=== PATIENT | male | born 1940 | race Hispanic/Latino ===

== ENCOUNTER 2022-04-21 17:36 | Emergency (ER) | payer OTHER ==
[2022-04-21 18:51] LABS: Absolute Lymphocytes (CBC) 0.8 K/uL (0.7-4.9); Hematocrit 43.7 % (39.6-49.0); Lymphocytes % 12.9 % (15.3-44.8); MPV 8.3 fL (7.6-11.3); RBC Red Blood Cell Count 4.86 M/uL (4.33-5.43)
[2022-04-21 18:54] LABS: Protime INR 1.45
[2022-04-21 19:11] LABS: Albumin 3.6 g/dL (3.4-5.0); Bilirubin Direct 0.2 mg/dL (0-0.2); Bilirubin Total 0.9 mg/dL (0.2-1.0); Magnesium 2.1 mg/dL (1.8-2.4); Potassium 4.6 mmol/L (3.5-5.1); Protein, Total 6.8 g/dL (6.4-8.2); Troponin High Sensitivity 4.6 pg/mL (<58.9)
--- NOTE | 2022-04-21 19:22 | RAD REPORT ---
EXAM DESCRIPTION: USExtrem Venous W Compress Bil04/21/2022 6:59 pm CLINICAL HISTORY: Leg pain COMPARISON: none FINDINGS: The common femoral, superficial femoral, popliteal and posterior tibial veins bilaterally are compressible and demonstrate augmentation. Doppler demonstrates good flow. Grayscale, color and spectral analysis performed on all vessels IMPRESSION: No evidence of deep venous thrombosis involving either lower extremity.
[2022-04-21] MEDS ORDERED: NA CHLORIDE 0.9% 1,000 ML ONE (20:31)
[2022-04-21 20:56] LABS: Urine Blood Trace-lysed (Negative); Urine Glucose Negative (Negative); Urine Protein Negative (Negative); Urine Specific Gravity 1.015 (1.005-1.030); Urine pH 6.5 (5.0-7.0)
--- NOTE | 2022-04-21 21:33 | RAD REPORT ---
EXAM DESCRIPTION: CT - Chest For Pe Angio - 04/21/2022 9:16 pm CLINICAL HISTORY: sob COMPARISON: None. TECHNIQUE: Dynamically enhanced axial 3 mm thick images of the chest were obtained during administra tion of <100> mL Isovue 370 IV contrast. Coronal and oblique reconstruction images were generated and reviewed. Exam utilizes a protocol for optimal evaluation of pulmonary arterial tree. Maximum intensity projections 3D imaging was utilized All CT scans are performed using dose optimization technique as appropriate and may include automated exposure control or mA/KV adjustment according to patient size. FINDINGS: A pulmonary embolus is not seen. A thoracic aortic aneurysm is not noted. A pleural effusion is not seen. A pericardial effusion is not seen. A lung consolidation is not present. IMPRESSION: Negative for a pulmonary embolism.
--- NOTE | 2022-04-21 21:34 | RAD REPORT ---
EXAM DESCRIPTION: Mike Single View04/21/2022 7:30 pm CLINICAL HISTORY: Chest pain COMPARISON: none FINDINGS: The lungs appear clear of acute infiltrate. The heart is normal size IMPRESSION: No acute abnormalities displayed
--- NOTE | 2022-04-21 21:56 | ER ---
Nurse's Notes [facility] Name: Donald Galdamez Age: 81 yrs Sex: Male : 1940 Arrival Date: 04/21/2022 Time: 17:36 Bed 4 Private MD: Diagnosis: Weakness;Other fatigue;Other malaise and fatigue;Chest pain, unspecified Presentation: 04/21 18:01 Chief complaint: Patient states: he has been having pain in his legs that goes up ap3 toward his stomach and his chest. Patient also reports fatigue and weakness. He states this all began a few days ago. Patient states this has happened before but wasn't told what was going on. Coronavirus screen: At this time, the client does not indicate any symptoms associated with coronavirus-19. Ebola Screen: No symptoms or risks identified at this time. Initial Sepsis Screen: Does the patient meet any 2 criteria? No. Patient's initial sepsis screen is negative. Does the patient have a suspected source of infection? No. Patient's initial sepsis screen is negative. Risk Assessment: Do you want to hurt yourself or someone else? Patient reports no desire to harm self or others. Onset of symptoms was April 18, 2022. 18:01 Method Of Arrival: Ambulatory ap3 18:01 Acuity: BRENDA 3 ap3 Triage Assessment: 18:02 General: Appears in no apparent distress. distressed, Behavior is calm, cooperative, ap3 appropriate for age. General: Reports fatigue for >3 days. Pain: Complains of pain in chest, abdomen, right foot, left foot, right leg and left leg. Neuro: Level of Consciousness is awake, alert, obeys commands, Oriented to person, place, time, Gait is steady, Speech is normal. Cardiovascular: Patient's skin is warm and dry. Respiratory: Airway is patent Respiratory effort is even, unlabored, Respiratory pattern is regular, symmetrical. Historical: - Allergies: 18:02 No Known Allergies; ap3 - Home Meds: 18:02 omeprazole 40 mg oral cpDR 1 cap once daily [Active]; tamsulosin 0.4 mg oral cap 1 cap ap3 once daily [Active]; atorvastatin 40 mg oral tab 1 tab once daily [Active]; Eliquis 5 mg oral tab 1 tab 2 times per day [Active]; memantine 10 mg oral tab 2 tab daily [Active]; - PMHx: 18:02 Hypercholesterolemia; Atrial fibrillation; Dementia; ap3 - Immunization history:: Client reports receiving the 2nd dose of the Covid vaccine. - Social history:: Smoking status: Patient denies any tobacco usage or history of. Screenin:08 Abuse screen: Denies threats or abuse. Nutritional screening: No deficits noted. ap3 Tuberculosis screening: No symptoms or risk factors identified. 22:23 Fall Risk None identified. as6 Assessment: 18:08 Pain: Pain began 2-3 days ago. ap3 22:23 Pain: Pain does not radiate. as6 Vital Signs: 18:01 BP 134 / 75; Pulse 73; Resp 17; Temp 98.7; Pulse Ox 96% ; Weight 70.31 kg; Height 5 ft. ap3 5 in. (165.10 cm); 20:35 BP 168 / 68; Pulse 61; Resp 15 S; Pulse Ox 100% on R/A; as6 21:00 BP 176 / 86; Pulse 58; Resp 12 S; Pulse Ox 99% on R/A; as6 21:06 BP 176 / 86; Pulse 56; Resp 12 S; Pulse Ox 100% on R/A; as6 18:01 Body Mass Index 25.79 (70.31 kg, 165.10 cm) ap3 ED Course: 17:36 Patient arrived in ED. as 18:02 Triage completed. ap3 18:08 Arm band placed on left wrist. ap3 18:08 Patient maintains SpO2 saturation greater than 95% on room air. ap3 18:09 EKG done, by ED staff. ap3 18:16 James Koroma MD is Attending Physician. jessica 19:01 US Extremity Venous W Compression Kaleb In Process Unspecified. EDMS 19:26 Attending Physician role handed off by James Koroma MD kdr 19:26 Rosalio Cruz MD is Attending Physician. kdr 19:32 XRAY Chest (1 view) In Process Unspecified. EDMS 20:18 Alaina Angel, RN is Primary Nurse. kd3 21:18 Chest For Pe Angio In Process Unspecified. EDMS 22:22 No provider procedures requiring assistance completed. IV discontinued, intact, as6 bleeding controlled, No redness/swelling at site. Pressure dressing applied. 22:23 Patient has correct armband on for positive identification. Bed in low position. Side as6 rails up X2. Adult w/ patient. Client placed on continuous cardiac and pulse oximetry monitoring. NIBP monitoring applied. Administered Medications: 20:41 Drug: NS 0.9% 1000 ml Route: IV; Rate: 125 ml/hr; Site: right forearm; kd3 22:21 Follow up: Response: No adverse reaction; IV Status: Order to discontinue infusion; IV as6 Intake: 500ml Medication: 22:24 VIS not applicable for this client. as6 Intake: 22:21 IV: 500ml; Total: 500ml. as6 Outcome: 21:55 Discharge ordered by . kdr 22:22 Discharged to home ambulatory, with family. as6 22:22 Condition: stable 22:22 Discharge instructions given to patient, family, Instructed on discharge instructions, follow up and referral plans. Demonstrated understanding of instructions, follow-up care. 22:24 Patient left the ED. as6 Signatures: Dispatcher [employer] EDMS James Koroma MD MD cha Rittger, Kevin, MD MD kdr Martinez, Amelia as Prokisch, Amanda, RN RN ap3 Merrill Franco RN RN as6 Alaina Angel, RN RN kd3
--- NOTE | 2022-04-21 21:56 | EDPHYS ---
Physician Documentation [facility] Name: Donald Galdamez Age: 81 yrs Sex: Male : 1940 Arrival Date: 04/21/2022 Time: 17:36 Bed 4 Private MD: ED Physician Rosalio Duffy HPI: 04/21 18:36 This 81 yrs old Male presents to ER via Ambulatory with complaints of Chest jessica Pain, General Weakness. 18:36 The patient or guardian reports chest pain that is located primarily in the HOT IN [facility] CHEST, WAVE FROM LEGS UP. Onset: 2 day(s) ago. The pain radiates to chest, abdomen, right leg and left leg. Associated signs and symptoms: Pertinent positives: recent travel. The chest pain is described as HOT. Duration: The patient or guardian reports multiple episodes, with no pattern. Modifying factors: The symptoms are alleviated by nothing. the symptoms are aggravated by nothing. Severity of pain: At its worst the pain was mild in the emergency department the pain is unchanged. The patient has not experienced similar symptoms in the past. Historical: - Allergies: 18:02 No Known Allergies; ap3 - Home Meds: 18:02 omeprazole 40 mg oral cpDR 1 cap once daily [Active]; tamsulosin 0.4 mg oral cap 1 cap ap3 once daily [Active]; atorvastatin 40 mg oral tab 1 tab once daily [Active]; Eliquis 5 mg oral tab 1 tab 2 times per day [Active]; memantine 10 mg oral tab 2 tab daily [Active]; - PMHx: 18:02 Hypercholesterolemia; Atrial fibrillation; Dementia; ap3 - Immunization history:: Client reports receiving the 2nd dose of the Covid vaccine. - Social history:: Smoking status: Patient denies any tobacco usage or history of. ROS: 18:38 Constitutional: Negative for fever, chills, and weight loss, Eyes: Negative for injury, jessica pain, redness, and discharge, ENT: Negative for injury, pain, and discharge, Neck: Negative for injury, pain, and swelling, Cardiovascular: Negative for chest pain, palpitations, and edema, Respiratory: Negative for shortness of breath, cough, wheezing, and pleuritic chest pain, Abdomen/GI: Negative for abdominal pain, nausea, vomiting, diarrhea, and constipation, Back: Negative for injury and pain, : Negative for injury, bleeding, discharge, and swelling, MS/Extremity: Negative for injury and deformity, Skin: Negative for injury, rash, and discoloration, Neuro: Negative for headache, weakness, numbness, tingling, and seizure, Psych: Negative for depression, anxiety, suicide ideation, homicidal ideation, and hallucinations, Allergy/Immunology: Negative for hives, rash, and allergies, Endocrine: Negative for neck swelling, polydipsia, polyuria, polyphagia, and marked weight changes, Hematologic/Lymphatic: Negative for swollen nodes, abnormal bleeding, and unusual bruising. Exam: 18:38 Constitutional: This is a well developed, well nourished patient who is awake, alert, jessica and in no acute distress. Head/Face: Normocephalic, atraumatic. Eyes: Pupils equal round and reactive to light, extra-ocular motions intact. Lids and lashes normal. Conjunctiva and sclera are non-icteric and not injected. Cornea within normal limits. Periorbital areas with no swelling, redness, or edema. ENT: Nares patent. No nasal discharge, no septal abnormalities noted. Tympanic membranes are normal and external auditory canals are clear. Oropharynx with no redness, swelling, or masses, exudates, or evidence of obstruction, uvula midline. Mucous membranes moist. Neck: Trachea midline, no thyromegaly or masses palpated, and no cervical lymphadenopathy. Supple, full range of motion without nuchal rigidity, or vertebral point tenderness. No Meningismus. Chest/axilla: Normal chest wall appearance and motion. Nontender with no deformity. No lesions are appreciated. Cardiovascular: Regular rate and rhythm with a normal S1 and S2. No gallops, murmurs, or rubs. Normal PMI, no JVD. No pulse deficits. Respiratory: Lungs have equal breath sounds bilaterally, clear to auscultation and percussion. No rales, rhonchi or wheezes noted. No increased work of breathing, no retractions or nasal flaring. Abdomen/GI: Soft, non-tender, with normal bowel sounds. No distension or tympany. No guarding or rebound. No evidence of tenderness throughout. Back: No spinal tenderness. No costovertebral tenderness. Full range of motion. Male : Normal genitalia with no discharge or lesions. Skin: Warm, dry with normal turgor. Normal color with no rashes, no lesions, and no evidence of cellulitis. MS/ Extremity: Pulses equal, no cyanosis. Neurovascular intact. Full, normal range of motion. Neuro: Awake and alert, GCS 15, oriented to person, place, time, and situation. Cranial nerves II-XII grossly intact. Motor strength 5/5 in all extremities. Sensory grossly intact. Cerebellar exam normal. Normal gait. Psych: Awake, alert, with orientation to person, place and time. Behavior, mood, and affect are within normal limits. 18:38 Musculoskeletal/extremity: DVT Exam: No signs of deep vein thrombosis. no pain, no swelling, no tenderness, negative Homans' sign noted on exam, no appreciated bluish discoloration, no erythema, no increased warmth. Vital Signs: 18:01 BP 134 / 75; Pulse 73; Resp 17; Temp 98.7; Pulse Ox 96% ; Weight 70.31 kg; Height 5 ft. ap3 5 in. (165.10 cm); 20:35 BP 168 / 68; Pulse 61; Resp 15 S; Pulse Ox 100% on R/A; as6 21:00 BP 176 / 86; Pulse 58; Resp 12 S; Pulse Ox 99% on R/A; as6 21:06 BP 176 / 86; Pulse 56; Resp 12 S; Pulse Ox 100% on R/A; as6 18:01 Body Mass Index 25.79 (70.31 kg, 165.10 cm) ap3 MDM: 18:17 Patient medically screened. jessica 18:38 Differential diagnosis: abnormal EKG, acute myocardial infarction, acute pericarditis, jessica anxiety, chest wall pain, congestive heart failure Cholelithiasis pancreatitis, pulmonary embolus, stable angina, unstable angina. HEART Score: History: Slightly Suspicious (0), ECG: Non specific repolarization disturbance / LBTB / PM (1), Age: > or = 65 years (2), Risk Factors: > or = 3 Risk factors for atherosclerotic disease (2), [Hypercholesterolemia] [Hypertension] [+ Family HX] Troponin: < or = 1 x Normal Limit (0), Total Score = 4. The patient was not given aspirin in the Emergency Department. Not indicated due to patient's past medical history. The patient's deep vein thrombosis risk score was calculated as follows: the patient has paralysis, paresis, or recent immobilization of the lower extremities (1.0 Pts) Total Score: 0. This patient was found to be at low risk for a deep vein thrombosis by using the Well's assessment criteria. The patient's pulmonary embolism risk score was calculated as follows: patient has experienced immobilization or surgery in the last four weeks (1.5 Pts) Total Score: 0-2 points. This patient was found to be at low risk for a pulmonary embolism by using the Well's assessment criteria. ALEE Risk Score: 1 - patient's age is greater or equal to 65 years, 1 - Three or more CAD risk factors, 1- Known CAD, 1 - Recent [<24hrs] Severe Angina, TOTAL SCORE = 4. Data reviewed: vital signs, nurses notes, lab test result(s), EKG, radiologic studies, CT scan, doppler, plain films. Data interpreted: ekg monitor: rate is 96 beats/min, rhythm is regular, Pulse oximetry: on room air is 96 %. Test interpretation: by ED physician or midlevel provider: ECG, plain radiologic studies. 18:41 ED course: Dr DUFFY TO DISPO, AWARE OF PATIENT. jessica 21:55 Patient medically screened. [facility] 04/21 18:18 Order name: Basic Metabolic Panel; Complete Time: 21:50 [facility] 04/21 18:18 Order name: CBC with Diff; Complete Time: 21:50 [facility] 04/21 18:18 Order name: LFT's; Complete Time: 21:50 [facility] 04/21 18:18 Order name: Magnesium; Complete Time: 21:50 [facility] 04/21 18:18 Order name: NT PRO-BNP; Complete Time: 21:50 [facility] 04/21 18:18 Order name: PT-INR; Complete Time: 21:50 [facility] 04/21 18:18 Order name: Troponin HS; Complete Time: 21:50 [facility] 04/21 18:18 Order name: XRAY Chest (1 view); Complete Time: 21:50 [facility] 04/21 18:18 Order name: Lipase; Complete Time: 21:50 [facility] 04/21 18:18 Order name: SARS-COV-2 RT PCR (Document "Date of Onset" if Symptomatic); Complete Time: [facility] 21:50 04/21 18:36 Order name: US Extremity Venous W Compression Kaleb; Complete Time: 21:50 [facility] 04/21 18:36 Order name: CT Chest For PE Angio [facility] 04/21 18:40 Order name: Chest For Pe Angio; Complete Time: 21:50 [facility] 04/21 20:58 Order name: Urine Dipstick-Ancillary; Complete Time: 21:50 [facility] 04/21 18:18 Order name: EKG; Complete Time: 18:19 [facility] 04/21 18:18 Order name: Cardiac monitoring; Complete Time: 20:41 [facility] 04/21 18:18 Order name: EKG - Nurse/Tech; Complete Time: 18:20 [facility] 04/21 18:18 Order name: IV Saline Lock; Complete Time: 20:41 [facility] 04/21 18:18 Order name: Labs collected and sent; Complete Time: 20:41 [facility] 04/21 18:18 Order name: O2 Per Protocol; Complete Time: 20:41 [facility] 04/21 18:18 Order name: O2 Sat Monitoring; Complete Time: 20:41 [facility] 04/21 18:18 Order name: Urine Dipstick-Ancillary (obtain specimen); Complete Time: 20:52 [facility] Administered Medications: 20:41 Drug: NS 0.9% 1000 ml Route: IV; Rate: 125 ml/hr; Site: right forearm; kd3 22:21 Follow up: Response: No adverse reaction; IV Status: Order to discontinue infusion; IV as6 Intake: 500ml Disposition Summary: 04/21/22 21:55 Discharge Ordered Location: Home kdr Problem: new kdr Symptoms: have improved kdr Condition: Stable kdr Diagnosis - Weakness kdr - Other fatigue kdr - Other malaise and fatigue kdr - Chest pain, unspecified kdr Followup: kdr - With: Private Physician - When: 2 - 3 days - Reason: If symptoms return, Further diagnostic work-up, Recheck today's complaints, Continuance of care, Re-evaluation by your physician Discharge Instructions: - Discharge Summary Sheet kdr - Weakness kdr - Fatigue kdr - Nonspecific Chest Pain, Adult, [id number] kdr Forms: - Medication Reconciliation Form kdr - Thank You Letter kdr Signatures: Dispatcher [employer] James Ferrer MD MD cha Rittger, Kevin, MD MD kdr Prokisch, Amanda RN RN [id number] Alaina Angel RN RN kd3 Merrill Franco RN as6
[2022-04-21 23:56] VITALS: TEMP 98.7
[2022-04-21 23:59] VITALS: BP 176/86
[2022-04-22 00:17] VITALS: O2SAT 100
--- NOTE | 2022-04-22 12:18 | EKG ---
Test Date: 2022-04-21 Test Time: 18:06:34 Tag Writer: TULIO MEASUREMENT RESULTS: Intervals: Rate: 75 MO: 138 QRSD: 126 QT: 396 QTc: 442 [place]: P: 61 MO: 138 QRS: 31 T: 136 INTERPRETIVE STATEMENTS: Normal sinus rhythm Left bundle branch block Abnormal ECG No previous ECG available for comparison Electronically Signed On 04-22-22 12:16:59 CDT by Sudheer Mustafa
== END 2022-04-21 22:24 | disposition home or self-care (01) ==
LOC: ER 17:36
DX: R07.89 Other chest pain (principal); R53.1 Weakness; R53.81 Other malaise; R53.83 Other fatigue; I48.91 Unspecified atrial fibrillation; E78.00 Pure hypercholesterolemia, unspecified; F03.90 Unspecified dementia, unspecified severity, without behavioral disturbance, psychotic disturbance, mood disturbance, and anxiety; Z79.01 Long term (current) use of anticoagulants; Z20.822 Contact with and (suspected) exposure to COVID-19
CPT/HCPCS: 85025; 80048; 36415; 83735; 85610; 80076; 81003; 84484; 83690; 83880; 71275; 71045; 93970; U0003; Q9967; J7030; 93005